=== PATIENT | female | born 1955 | race Caucasian/White ===

== ENCOUNTER 2023-04-16 10:28 | Outpatient (REF) | payer MEDICARE, SELFPAY | END 2023-04-16 10:29 | disposition home or self-care (01) | LOC: HO.SH 10:28 | PROVIDERS: PCP Internal Medicine; Visit Provider Internal Medicine | DX: Z01.118 Encounter for examination of ears and hearing with other abnormal findings (principal); H90.A31 Mixed conductive and sensorineural hearing loss, unilateral, right ear with restricted hearing on the contralateral side; H90.A22 Sensorineural hearing loss, unilateral, left ear, with restricted hearing on the contralateral side | CPT/HCPCS: 92557; 92567 ==

== ENCOUNTER 2024-01-21 09:00 | Outpatient (REF) | payer MEDICARE, SELFPAY ==
--- OUTSIDE RECORDS SUMMARY | 2024-01-26 06:00 | XMS_ITS ---
Author Name [facility] Organization Unknown History of Medication Use Medication Directions Dispensed Refills Start Date End Date [facility] pantoprazole 40 mg tablet,delayed release TAKE 1 TABLET BY MOUTH EVERY DAY 01/06/2024 9 active rosuvastatin 10 mg tablet TAKE 1 TABLET BY MOUTH EVERY DAY FOR 90 DAYS 01/06/2024 9 active amoxicillin 500 mg capsule TAKE 4 CAPSULES BY MOUTH 1 HOUR PRIOR TO APPOINTMENT 01/06/2024 9 active methylprednisolone 4 mg tablets in a dose pack TAKE 6 TABLETS ON DAY 1 DIRECTED ON PACKAGE AND DECREASE BY 1 TAB EACH DAY FOR A TOTAL OF 6 DAYS 01/06/2024 9 active ibuprofen 800 mg tablet TAKE 1 TABLET (800 MG TOTAL) BY MOUTH EVERY 8 HOURS NEEDED FOR PAIN FOR UP TO 30 DAYS. 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
== END 2024-01-21 09:01 | disposition home or self-care (01) ==
LOC: HO.SH 09:00
PROVIDERS: Visit Provider Internal Medicine
DX: Z01.118 Encounter for examination of ears and hearing with other abnormal findings (principal); H90.3 Sensorineural hearing loss, bilateral
CPT/HCPCS: 92557

== ENCOUNTER 2024-01-24 14:17 | Outpatient (REF) | payer SELFPAY ==
--- NOTE | 2024-01-24 15:32 | MHC.AU.MED ---
Medical Clearance for Hearing Instrumentation Date: 01/24/24 Patient Name: Lexy Guzmán Date of : 1955 Referring Provider: Dr. Virginia Avila We have seen your patient on 01/24/24 and have determined that they are a candidate for amplification (See accompanying report). Specifically, they would benefit from: Hearing aid use in both ears There is a statute that addresses Medical Evaluation Requirements prior to fitting a patient with a hearing aid. According to [place] statute 265 CMR:6.03(1), (a) General. Except as provided in 265 CMR 6.03(1)(b), a furnace unloader shall not sell a hearing aid unless the prospective user has presented to the furnace unloader a written statement signed by a licensed physician that states that the patient's hearing loss has been medically evaluated and the patient may be considered a candidate for a hearing aid. The medical evaluation must have taken place within the preceding six months. Please note: Due to the [place] Statute referenced above, we cannot accept a signature other than that of a licensed physician. DETAIL SUPERVISOR and PA signatures cannot be accepted. I am in agreement with the above recommendation. There is no medical contraindication for hearing instrumentation. Physician Signature Date Physician Name (Printed)
--- NOTE | 2024-01-25 08:49 | MHC.AU.HA1 ---
Hearing Aid Evaluation Date of Visit: 01/24/24 Historical Information: Description of Hearing: Right ear: moderately severe rising to normal mixed hearing loss Left ear: moderate rising to normal mixed hearing loss Summary: Lexy returned for HAE accompanied by her , who is a hearing aid user himself. Discussed makes and models, patient is concerned about cosmetics as well as natural quality of speech as she once tried hearing aids at [facility] and did not like how they sounded. Ultimately decided upon RITE style with domes, will add earmolds if necessary. Selected Oticon Intent 2 miniRITE R in chestnut. Will request medical clearance from managing ENT. Pt also notes she is still awaiting MRI results from PCP regarding recent onset of dizziness, plans to contact ENT after results come in. Hearing Aid Prescription: Based on the individual?s shared listening needs, communication environments, dexterity, desire for connectivity, and personal preferences, the following prescription for amplification has been made: Right ear: Make, Model, Color: Oticon Intent 2 miniRITE R, chestnut Battery Size: Rechargeable Digital Traffic Coordinator/Slim Tube: #2 85g Type of Earmold/Dome/CShell/SlimTip: 6mm dbl jacobsen Left ear: Left ear prescription to be same as Right Hearing Aid above: Make, Model, Color: Oticon Intent 2 miniRITE R, chestnut Battery Size: Rechargeable Digital Traffic Coordinator/Slim Tube: #2 85g Type of Earmold/Dome/CShell/SlimTip: 6mm dbl jacobsen Accessories/Assistive Technology Recommended: smart dope heater Plan of Care: Patient wishes to purchase hearing aids as prescribed Action Taken/Action Needed: Medical Clearance to be requested from PCP/ENT Hearing Instrument Fitting to be scheduled when materials arrive Primary Diagnosis: H90.6 Mixed Hearing Loss, Bilateral Secondary Diagnosis: H90.A22 SNHL, Unilateral, Left Ear, W/Restricted Contralateral Hearing Signature: Provider: Vianca Meyer, CCC-A
== END 2024-01-24 14:18 | disposition home or self-care (01) ==
LOC: HO.HAP 14:17
PROVIDERS: Visit Provider Internal Medicine
DX: Z46.1 Encounter for fitting and adjustment of hearing aid (principal); H90.6 Mixed conductive and sensorineural hearing loss, bilateral
CPT/HCPCS: 92590

== ENCOUNTER 2024-02-01 15:19 | Outpatient (REF) | payer SELFPAY ==
--- NOTE | 2024-02-02 08:55 | MHC.AU.HA2 ---
Hearing Instrument Fitting- Adult- Binaural Date of Visit: 02/02/24 Hearing Instruments Dispensed: Right Ear: Cristopher, Model, Color, Serial Number: Ayaka Intent 2 miniRITE Rjose luis [id number] Professor Of Communication And Writing Repair Warranty: 02/23/2027 Professor Of Communication And Writing Loss and Damage Warranty: 02/23/2027 [facility] Service Plan: Battery Size: Rechargeable Configuration Management Manager/Slim Tube: #1 85g Earmold/Dome/CShell/SlimTip: 6mm dbl jacobsen Type of Wax Guard: Minifit ProWax Left Ear: Cristopher, Model, Color, Serial Number: Oticon Intent 2 miniRITE Rjose luis [id number] Professor Of Communication And Writing Repair Warranty: 02/23/2027 Professor Of Communication And Writing Loss and Damage Warranty: 02/23/2027 [facility] Service Plan: Battery Size: Rechargeable Configuration Management Manager/Slim Tube: #1 85g Earmold/Dome/CShell/SlimTip: 6mm dbl jacobsen Type of Wax Guard: Minifit ProWax Accessories/Assistive Technology: Sirius SmartCharger S#[id number] Warranty 02/23/2027 [employer] TV3 [id number] Warranty 02/23/2025 Summary of Fitting: Lexy is here for hearing aid fitting. Discussed reverse slope and need for detailed patient feedback in programming process. Preprogrammed to have little to no high frequency gain, increased high frequency gain slightly above prescribed settings. Ran real ear measurements as reference, response looks as expected. Initial patient response positive; noted improvement in hearing ability. Decreased overall gain per pt request during adjustment period, also decreased right gain for better balance between ears. Reviewed basic use, cleaning, charging. Paired with phone per pt request for david use only, not streaming. Pt questioned if dizziness has increased with use of aids or if she is just getting used to hearing differently (states she is scheduled for vestibular PT, MRI was nonremarkable, plans to contact managing ENT again); instructed patient to discontinue use should dizziness worsen and call to schedule follow up visit. Pt agreed. Signed medical clearance as we did not receive from ENT yet. Reviewed and signed service agreement. Pt went to front to schedule 3 wk follow up and pay 50%, wishes to finance remaining balance. Recommendations: Recommendations: A hearing instrument follow-up is recommended in 2-3 weeks. Recommendations (Other): Diagnosis Code(s): Primary Diagnosis: H90.6 Mixed Hearing Loss, Bilateral Secondary Diagnosis: H90.A22 SNHL, Unilateral, Left Ear, W/Restricted Contralateral Hearing Signature: Provider: Vianca Meyer, CCC-A
== END 2024-02-01 15:20 | disposition home or self-care (01) ==
LOC: HO.HAP 15:19
PROVIDERS: Visit Provider Internal Medicine
DX: Z46.1 Encounter for fitting and adjustment of hearing aid (principal); H90.6 Mixed conductive and sensorineural hearing loss, bilateral
CPT/HCPCS: V5261; V5299

== ENCOUNTER 2024-02-07 08:29 | Outpatient (REF) | payer SELFPAY ==
--- NOTE | 2024-02-07 10:59 | MHC.AU.HA3 ---
Hearing Instrument Follow-Up- Binaural Date of Visit: 02/07/24 Right Ear: Cristopher, Model, Color, Serial Number: Oticon Intent 2 miniRITE R chestnut [id number] Drapery Hemmer Automatic Repair Warranty: 02/23/2027 [employer] Automatic Loss and Damage Warranty: 02/23/2027 [facility] Service Plan: Battery Size: Rechargeable Engineering Operations Leader/Slim Tube: #2 85g Earmold/Dome/CShell/SlimTip:6mm dbl jacobsen Type of Wax Guard: Minifit ProWax Dispensed By: [facility] Date of Fittin02/02/24 Left Ear: Cristopher, Model, Color, Serial Number: Oticon Intent 2 miniRITE R, chestnut [id number] Drapery Hemmer Automatic Repair Warranty: 02/23/2027 Draper[employer] Automatic Loss and Damage Warranty: 02/23/2027 [facility] Service Plan: Battery Size: Rechargeable Engineering Operations Leader/Slim Tube: #2 85g Earmold/Dome/CShell/SlimTip: 6mm dbl jaocbsen Type of Wax Guard: Minifit ProWax Dispensed By: [facility] Date of Fittin02/02/24 Follow-Up Summary: Lexy scheduled an additional follow up as she feels the hearing aids are providing amplification but she is not able to understand speech. She states certain sounds such as floor boards creaking are louder than expected, but nothing is uncomfortable. She has generally been decreasing overall volume 2 steps. Increased mid-highs, increased sudden sound reduction, decreased overall gain. Discussed challenges of low frequency loss, risk of losing clarity by increasing lows. Patient understands, says she will experiment with equalizer if she is struggling to help determine which direction to adjust at next follow up. Lexy also states she saw her ENT at [facility] regarding dizz[place], no significant findings or suggestions noted. She intends to start PT in early February. Recommendations: Recommendations: An additional follow-up was scheduled to monitor progress. Recommendations (Other): Diagnosis Code(s): Primary Diagnosis: H90.6 Mixed Hearing Loss, Bilateral Signature: Student/Clinical Fellow: Provider: Vianca Meyer, CCC-A
== END 2024-02-07 08:30 | disposition home or self-care (01) ==
LOC: HO.HAP 08:29
PROVIDERS: Visit Provider Internal Medicine
DX: Z13.89 Encounter for screening for other disorder (principal)

== ENCOUNTER 2024-02-25 12:54 | Outpatient (REF) | payer SELFPAY ==
--- NOTE | 2024-02-25 14:49 | MHC.AU.HA3 ---
Hearing Instrument Follow-Up- Binaural Date of Visit: 02/25/24 Right Ear: Cristopher, Model, Color, Serial Number: Oticon Intent 2 miniRITE R chestamanda [id number] Steam Oven Operator Repair Warranty: 02/23/2027 Steam Oven Operator Loss and Damage Warranty: 02/23/2027 [facility] Service Plan: Battery Size: Rechargeable Hospice Liaison/Slim Tube: #2 85g Earmold/Dome/CShell/SlimTip:6mm dbl jacobsen Type of Wax Guard: Minifit ProWax Dispensed By: [facility] Date of Fittin02/02/24 Left Ear: Cristopher, Model, Color, Serial Number: Oticon Intent 2 miniRITE R chestamanda [id number] Steam Oven Operator Repair Warranty: 02/23/2027 Steam Oven Operator Loss and Damage Warranty: 02/23/2027 [facility] Service Plan: Battery Size: Rechargeable Hospice Liaison/Slim Tube: #2 85g Earmold/Dome/CShell/SlimTip: 6mm dbl jacobsen Type of Wax Guard: Minifit ProWax Dispensed By: [facility] Date of Fittin02/02/24 Follow-Up Summary: Lexy continues to experience difficulty understanding speech. Prior to today's appointment she had emailed me saying she intended to return the hearing aids and try something else. Discussed adjusting current aids, trying Phonak loaners, or both at same time if she was interested in A-B comparison. Decided to continue with Oticon for now as we have only made one set of adjustments thus far and there is no specific objection that suggests Oticon itself is the problem, will consider Phonak demo if issues persist. Patient remains motivated to try hearing aids. Gave 3 programs: 1- flat, 2- low frequency emphasis, 3- high frequency emphasis. Lexy agrees to try all settings to determine what works best, if any. She is aware she can use VC within programs as well. Demonstrated in david. Follow up in 1-2 weeks recommended. Trial period extended. Notes she had a PT evaluation for dizziness and labyrinthitis is suspected, feels optimistic about improvement. Recommendations: Recommendations: An additional follow-up was scheduled to monitor progress. Diagnosis Code(s): Primary Diagnosis: H90.6 Mixed Hearing Loss, Bilateral Signature: Provider: Vianca Meyer, [facility]
== END 2024-02-25 12:55 | disposition home or self-care (01) ==
LOC: HO.HAP 12:54
PROVIDERS: Visit Provider Internal Medicine
DX: Z13.89 Encounter for screening for other disorder (principal)

== ENCOUNTER 2024-03-01 10:54 | Outpatient (REF) | payer SELFPAY ==
--- NOTE | 2024-03-01 12:03 | MHC.AU.HA3 ---
Hearing Instrument Follow-Up- Binaural Date of Visit: 03/01/24 Right Ear: Cristopher, Model, Color, Serial Number: Oticon Intent 2 miniRITE R chestnut [id number] Sql Database Developer Repair Warranty: 02/23/2027 Sql Database Developer Loss and Damage Warranty: 02/23/2027 [facility] Service Plan: Battery Size: Rechargeable Formula Room Worker/Slim Tube: #2 85g Earmold/Dome/CShell/SlimTip:6mm dbl jacobsen Type of Wax Guard: Minifit ProWax Dispensed By: [facility] Date of Fittin02/02/24 Left Ear: Cristopher, Model, Color, Serial Number: Oticon Intent 2 miniRITE R chestnut [id number] Sql Database Developer Repair Warranty: 02/23/2027 Sql Database Developer Loss and Damage Warranty: 02/23/2027 [facility] Service Plan: Battery Size: Rechargeable Formula Room Worker/Slim Tube: #2 85g Earmold/Dome/CShell/SlimTip: 6mm dbl jacobsen Type of Wax Guard: Minifit ProWax Dispensed By: [facility] Date of Fittin02/02/24 Follow-Up Summary: Lexy decided she'd like to demo Phonak aids. Discussed possibly introducing too many variables as at our last appt we gave 3 programs to experiment with in her Oticon aids, but she feels comfortable wearing one set to start then switching to the Phonak aids. States she liked P2 of the Oticon aids best (more low frequency gain) but still felt she heard louder but struggled to understand speech. Phonak aids have same program set up - P1 flat, P2 low emphasis, P3 high emphasis. Follow up as scheduled. Recommendations: Recommendations: Follow up as planned. Diagnosis Code(s): Primary Diagnosis: H90.6 Mixed Hearing Loss, Bilateral Signature: Provider: Vianca Meyer, [facility]
== END 2024-03-01 10:55 | disposition home or self-care (01) ==
LOC: HO.HAP 10:54
PROVIDERS: Visit Provider Internal Medicine
DX: Z13.89 Encounter for screening for other disorder (principal)

== ENCOUNTER 2024-03-10 12:52 | Outpatient (REF) | payer SELFPAY ==
--- OUTSIDE RECORDS SUMMARY | 2024-03-10 14:41 | XMS_ITS ---
Author Organization [facility], Address [address] [address] Care Team Providers Care Hosp[facility] Team Lead Name Role Phone SARA DUMAS Unavailable [phone] REASON FOR VISIT SCHED DIFF INJ (120 MIN) Encounters Encounter Location Date Provider Diagnosis [facility], [address] [address] 11/05/2023 SARA DUMAS Plan Of Treatment No Information Progress Notes * MARKTala GonzalezvivianDOB:1955 (68 yo F)Acc No.[id number]:11/05/2023 Patient:?Lexy GUZMÁN :1955???Age:68 Y???Sex:Female [address]:[place] [address] * true * Date:? Generated for Printi ng/Famartag/eTransmitting on:?03/10/2024 02:41 PM EST
--- OUTSIDE RECORDS SUMMARY | 2024-03-10 14:41 | XMS_ITS ---
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 Name Role Phone ANTHONY ARCOS Unavailable [phone] Allergies No Known Allergies REASON FOR VISIT Chronic left thigh pain, follow up Medications Medication SIG (Take, Route, Frequency, Duration) Notes Start Date End Date Status Motrin Active Tylenol Active Rosuvastatin Calcium Active Pantoprazole Sodium Active Citalopram & Diet Manage Prod Active Problems Problem Type SNOMED Code ICD Code Onset Dates Problem Status W/U Status Risk Notes Problem [id number] Meralgia paresthetica, left lower limb (G57.12) Active confirmed Vital Signs Weight 146 lbs 11/16/2023 Height 66 in 11/16/2023 BMI 23.56 kg/m2 11/16/2023 Weight-kg 66.22 kg 11/16/2023 Encounters Encounter Location Date Provider Diagnosis [place], [address] [address] 11/16/2023 ANTHONY ARCOS History of total lef t hip replacement Z96.642 ; Tendinitis of left hip flexor M76.892 ; Myofascial pain M79.18 and Meralgia paresthetica, left lower limb G57.12 Assessments Encounter Date Diagnosis (ICD Code) Assessment Notes Treatment Notes Treatment Clinical Notes Section Notes 11/16/2023 History of total left hip replacement (ICD-10 - Z96.642) Lexy has continued left anterior hip and thigh pain with hip flexion that started immediately after a total hip arthroplasty. We were unable to localize the source of her pain with a series of differential injections, but she has more focal pain over the anterior hip after additional physical therapy. We discussed repeating the differential injections, and she had no relief after an anesthetic injection into multiple spots along the iliopsoas tendon at the iliopectineal line/anterior to the hip joint/insertion. She also had no relief with anesthetic injections/trigge r points into the rectus femoris, sartorius and vastus lateralis muscle/proximal tendon. We also performed a lateral femoral cutaneous nerve block/hydrodissec tion without relief. We discussed that I am unable to find an extrinsic cause for her ongoing pain and maybe the pain is due to femoral stem pain. We discussed following up with Dr. Martin to rule out an intrinsic cause for the ongoing thigh pain. 11/16/2023 Tendinitis of left hip flexor (ICD-10 - M76.892) 11/16/2023 Myofascial pain (ICD-10 - M79.18) 11/16/2023 Meralgia paresthetica, left lower limb (ICD-10 - G57.12) 11/16/2023 Other Dragon dictation was used to assist with documentation of this note. While I did review this for errors, it is certainly possible that I may have overlooked some. If there is a confusing error, please do not hesitate to contact me for clarification. Thank you. . Greater than 45 minutes was spent with the patient, and more than 50 percent of the visit was spent [id number] counseling the patient or coordinating care. Time spent includes reviewing the medical record in preparation for the visit, performing a medically appropriate history and physical, medical decision making, counseling/educat ing patient and documenting this encounter. Time excludes any procedures that were performed during this encounter. Plan Of Treatment Treatment Notes Assessment Notes History of total left hip replacement James parker has continued left anterior hip and thigh pain with hip flexion that started immediately after a total hip arthroplasty. We were unable to localize the source of her pain with a series of differential injections, but she has more focal pain over the anterior hip after additional physical therapy. We discussed repeating the differential injections, and she had no relief after an anesthetic injection into multiple spots along the iliopsoas tendon at the iliopectineal line/anterior to the hip joint/insertion. She also had no relief with anesthetic injections/trigger points into the rectus femoris, sartorius and vastus lateralis muscle/proximal tendon. We also performed a lateral femoral cutaneous nerve block/hydrodissection without relief. We discussed that I am unable to find an extrinsic cause for her ongoing pain and maybe the pain is due to femoral stem pain. We discussed following up with Dr. Martin to rule out an intrinsic cause for the ongoing thigh pain. Other Dragon dictation was used to assist with documentation of this note. While I did review this for errors, it is certainly possible that I may have overlooked some. If there is a confusing error, please do not hesitate to contact me for clarification. Thank you. . Greater than 45 minutes was spent with the patient, and more than 50 percent of the visit was spent [id number] counseling the patient or coordinating care. Time spent includes reviewing the medical record in preparation for the visit, performing a medically appropriate history and physical, medical decision making, counseling/educating patient and documenting this encounter. Time excludes any procedures that were performed during this encounter. Next Appt Details Follow Up: prn, Reason: Progress Notes * Lexy GUZMÁNDOB:1955 (68 yo F)Acc No.[id number]:11/16/2023 Patient:?Lexy GUZMÁN Provider:?Anthony Arcos, :1955???Age:68 Y???Sex:Female D ate:11/16/2023 Address:[address] [place], [place] [id number] Subjective: * Chief Complaints: * ???Chronic left thigh pain, follow up * HPI: ???Hip:?Lexy reports for differential injections for her left hip pain. She continues to localize her pain to the anterior and lateral aspects. She continues to have pain with hip flexion above or below 90 degree(s) . She does report less diffuse myofascial pain after the course of physical therapy. * Medical History:? * Surgical History:?right hip replacement 08/05/2017left hip replacement 06/19/2021microvascular decompression of cranial nerve 7 2007microvascular decompression of cranial nerve 7 2008 * Hospitalization/Major Diagno stic Procedure:? * Family History:?No Family Hi story documented..? * Medications:?TakingMotrin Ty lenol Rosuvastatin Calcium Pantoprazole Sodium Citalopram & Diet Manage Prod Medication List reviewed and reconciled with the patientTaking Motrin Taking Tylenol Taking Rosuvastatin Calcium Taking Pantoprazole Sodium Taking Citalopram & Diet Manage Prod Medication List reviewed and reconciled with the patient * Allergies:?N.K.D.A.no[Allerg ies Verified] Objective: * Vitals:?Wt:146lbs, Ht: 66 in , BMI:23.56Index, Pain scale:51-10, Wt-k.22 kg, Body Surface Area: 1.75. * Examination: ???General Examination: ???General appearance: Appearance within normal limits with no signs of acute distress. Eyes normal conjunctiva. Sclera are clear. Extra ocular movements are intact. ENT: Normal appearance of ears and nose. No obvious hearing loss. Without tracheal deviation. Cardiovascular: Extremities are warm with normal peripheral perfusion and without edema or varicosities. Respiratory: Nonlabored with no audible wheezing. Skin: No visible rashes, lesions or ulcers. No evidence of induration on palpation.. Psychiatric: Appropriate mood and affect. Cooperative. ???Left hip: ???Hip Left Palpation: No tenderness over greater trochanter, ASIS, iliac crest Hip range of motion: Flexion normal. Hip internal rotation normal. Hip external rotation normal. Hip Motor Strength: Normal. Sensation: No loss of sensation to light palpation Special Tests (hip) Darell/Ritesh: negative Scour: negative FAIR: negative Log roll: negative Stinchfield: negative. Assessment: * Assessment: 1.?History of total left hip replacement - Z96.642 (Primary)???2.?Tendinitis of left hip flexor - M76.892???3.?Myofascial pain - M79.18???4.?Meralgia paresthetica, left lower limb - G57.12??? Plan: * Treatment: 2.?Others? Notes: Dragon dictation was used to assist with documentation of this note. While I did review this for errors, it is certainly possible that I may have overlooked some. If there is a confusing error, please do not hesitate to contact me for clarification. Thank you. . Greater than 45 minutes was spent with the patient, and more than 50 percent of the visit was spent [id number] counseling the patient or coordinating care. Time spent includes reviewing the medical record in preparation for the visit, performing a medically appropriate history and physical, medical decision making, counseling/educating patient and documenting this encounter. Time excludes any procedures that were performed during this encounter. ?? * Procedures:?Diagnostic Iliopsoas Tendon Sheath Injection Guidance: Ultrasound guidance Site: left iliopsoas tendon sheath Indication: hip pain Injectate: lidocaine 1% (2cc), ropivicaine 0.5% (2cc) Indications and alternatives to the procedure were explained to the patient. Risks and benefits were discussed, including the risk of bleeding, infection, nerve damage, tendon damage, skin discoloration, fat atrophy, increased pain/reaction to the injectate or continued pain. All questions were answered. Verbal informed consent was provided by the patient. Time out was performed, including verification of patient ID, procedure, site and side. The procedure site was marked and the patient was prepped aseptically. A diagnostic injection of lidocaine//ropivicaine solution was given under sterile technique using a 25g x 3.5 needle into the left iliopsoas tendon sheath using ultrasound guidance and an in-line approach. The patient tolerated the procedure without any immediate adverse reaction. A sterile bandage was applied. The images were permanently stored and achieved in the practice's PACS system. . . Therapeutic Trigger Point Injection Guidance: Ultrasound guidance Site: left rectus femoris, sartorius, vastus lateralis Indication: pain in the left hip/thigh Injectate: lidocaine 1% (4cc) Indications and alternatives to the procedure were explained to the patient. Risks and benefits were discussed, including the risk of bleeding, infection, nerve damage, tendon damage, skin discoloration, fat atrophy, increased pain/reaction to the injectate, continued pain or pneumothorax if injecting near the lungs. All questions were answered. Verbal informed consent was provided by the patient. Time out was performed, including verification of patient ID, procedure, site and side. The procedure site was marked and the patient was prepped aseptically. A therapeutic injection of diluted lidocaine solution was given under sterile technique using a 25g x 1.5 needle into the above trigger point using ultrasound guidance. The patient tolerated the procedure without any immediate adverse reaction. The patient was instructed to apply ice to the area for 20 minutes and avoid strenuous activities for 24-48 hours following the injection. Following that time, the patient can resume regular activities. The images were stored on an external memory stick. . . ?Lateral Femoral Cutaneous (Meralgia [place]) Peripheral Nerve Block Guidance: Ultrasound guidance Site: Left Lateral Femoral Cutaneous Nerve Indication: Meralgia [place] pain Injectate: lidocaine 1% (2cc), NS 0.9% (8cc) Indications and alternatives to the procedure were explained to the patient. Risks and benefits were discussed, including the risk of bleeding, infection, nerve damage, tendon damage, skin discoloration, fat atrophy, increased pain/reaction to the injectate or continued pain. All questions were answered. Verbal informed consent was provided by the patient. Time out was performed, including verification of patient ID, procedure, site and side. The procedure site was marked and the patient was prepped aseptically. A therapeutic injection of diluted lidocaine solution was given under sterile technique using a 25g x 1.5 needle into the lateral femoral cutaneous nerve sheath at the ASIS using ultrasound guidance. The patient tolerated the procedure without any immediate adverse reaction. The patient was instructed to apply ice to the area for 20 minutes and avoid strenuous activities for 24-48 hours following the injection. Following that time, the patient can resume regular activities. ? * Procedure Codes:? INJEC T TENDON ORIGIN/[id number] ECHO GUIDE FOR [id number] N BLOCK, OTHER [id number] INJECT TRIGGER POINTS, =/> 3 * Preventive Medicine:? ??Screenings:?Fall risk screening?Fall Risk Assessment:?No falls in the past year * Follow Up:?prn * Billing Information: * Visit Code:? 13058 Office Visit, Est Pt., Level 5. * Procedure Codes:? INJECT TENDON ORIGIN/INSERT. 85274 ECHO GUIDE FOR BIOPSY. 55313 N BLOCK, OTHER PERIPHERAL. 73622 INJECT TRIGGER POINTS, =/> 3. * Sign off status: Completed true * Provider:?Anthony Arcos DO Date:?11/15 Generated for Joycelyn geller/Prince/eTransmitting on:?03/10/2024 02:40 PM EST History and Physical Notes * HPI (History of Present Illness) Category Sub-Category Detail Notes Category Not es Hip Lexy reports for differential injections for her left hip pain. She continues to localize her pain to the anterior and lateral aspects. She continues to have pain with hip flexion above or below 90 degree(s) . She does report less diffuse myofascial pain after the course of physical therapy. Examination Category Sub-Category Detail Notes Category Not es Left hip Hip Left Palpation: No tenderness over greater trochanter, ASIS, iliac crest Hip range of motion: Flexion normal. Hip internal rotation normal. Hip external rotation normal. Hip Motor Strength: Normal. Sensation: No loss of sensation to light palpation Special Tests (hip) Darell/Ritesh: negative Scour: negative FAIR: negative Log roll: negative Stinchfield: negative General Examination General appearance: Appearance within normal limits with no signs of acute distress. Eyes normal conjunctiva. Sclera are clear. Extra ocular movements are intact. ENT: Normal appearance of ears and nose. No obvious hearing loss. Without tracheal deviation. Cardiovascular: Extremities are warm with normal peripheral perfusion and without edema or varicosities. Respiratory: Nonlabored with no audible wheezing. Skin: No visible rashes, lesions or ulcers. No evidence of induration on palpation.. Psychiatric: Appropriate mood and affect. Cooperative.
--- OUTSIDE RECORDS SUMMARY | 2024-03-10 14:41 | XMS_ITS | Patient Health Record ---
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 Name Role Phone SARA DUMAS Unavailable [phone] Allergies No Known Allergies Reason For Referral Reason Lt iliopsoas tendino leora, myofascial pain- stretch, strengthen, manual therapy Diagnosis 1 Myofascial pain (M79 .18) Diagnosis 2 Tendinitis of left h ip flexor (M76.892) Referral Organization [facility], Referring Provider First Name SARA Referring Provider Last Name ALESIA Referring Provider Speciality Physical M edicine and Rehabilitation Referred Provider Specialty Physical The rapist Referral Priority Routine Medications Medication SIG (Take, Route, Frequency, Duration) Notes Start Date End Date Status Motrin Active Tylenol Active Rosuvastatin Calcium Active Pantoprazole Sodium Active Citalopram & Diet Manage Prod Active Problems Problem Type SNOMED Code ICD Code Onset Dates Problem Status W/U Status Risk Notes Problem [id number] Meralgia paresthetica, left lower limb (G57.12) Active confirmed Problem [id number] Other chronic pain (G89.29) Active confirmed Problem 946626568642 History of total left hip replacement (Z96.642) Active confirmed Vital Signs Weight-kg 66.22 kg 11/16/2023 Height 66 in 11/16/2023 Weight 146 lbs 11/16/2023 BMI 23.56 kg/m2 11/16/2023 Encounters Encounter Location Date Provider Diagnosis [facility], [address] [facility] [place] [address] 09/10/2023 SARA DUMAS Pain in left hip M25.552 ; Other chronic pain G89.29 ; History of total left hip replacement Z96.642 ; Tendinitis of left hip flexor M76.892 ; Gluteal tendinitis, left hip M76.02 and Myofascial pain M79.18 [facility] [address] [place] [address] 11/04/2023 SARA DUMAS Tendinitis of left hip flexor M76.892 and Myofascial pain M79.18 [facility] [address] [place] [address] 11/16/2023 SARA GONZALEZAN History of total lef t hip replacement Z96.642 ; Tendinitis of left hip flexor M76.892 ; Myofascial pain M79.18 and Meralgia paresthetica, left lower limb G57.12 [facility] [address] [place] [address] 11/05/2023 SARA DUMAS [facility] [address] [place], [place] 09/21/2023 SRAA PIERCESMAN [facility] [address] [address] [place], [place] 09/22/2023 SARA PIERCESMAN [facility] [address] [address] [place], [place] 09/23/2023 SARA DUMAS [facility] [address] [address] [place], [place] 10/04/2023 SARA PIERCESMAN [facility] [address] [place] [address] [place], [place] 10/04/2023 SARA DUMAS Assessments Encounter Date Diagnosis (ICD Code) Assessment Notes Treatment Notes Treatment Clinical Notes Section Notes 09/10/2023 Other chronic pain (ICD-10 - G89.29) 09/10/2023 Pain in left hip (ICD-10 - M25.552) 11/04/2023 Myofascial pain (ICD-10 - M79.18) 11/04/2023 Tendinitis of left hip flexor (ICD-10 - M76.892) Lexy has continued left hip pain after her total hip arthroplasty. We are not successful in identifying the source of her pain with the previous round of differential injections. She is focused on the myofascial pain with her physical therapist, but has persistent pain. We did discuss associate diagnoses including potential referred pain. Nohemi completed 2 to 3 months of additional physical therapy I would like to repeat the differential injections to ensure that the pain is not being referred from the tendons. She will follow-up in a procedure slot. 11/16/2023 History of total left hip replacement [...] also performed a lateral femoral cutaneous nerve block/hydrodissect ion without relief. We discussed that I am unable to find an extrinsic cause for her ongoing pain and maybe the pain is due to femoral stem pain. We discussed following up with Dr. Martin to rule out an intrinsic cause for the ongoing thigh pain. 11/16/2023 Tendinitis of left hip flexor (ICD-10 - M76.892) 11/16/2023 Myofascial pain (ICD-10 - M79.18) 09/10/2023 History of total left hip replacement (ICD-10 - Z96.642) Lexy has persistent left anterior hip pain after a total hip arthroplasty. She primarily has pain with hip flexion, and I'm able to reproduce her hip pain with resisted hip flexion on exam today. Diagnostic ultrasound the show subtle abnormality of the iliopsoas tendon but no clear snapping or impingement against the hip joint replacement with dynamic testing. An anesthetic injection into the iliopsoas tendon at the hip joint did temporarily relieve the anterior lateral hip pain even with provocative testing. We then performed a series of trigger point injections which increase the thigh pain. She did have a focal area tenderness over lateral hip and abnormality of the gluteal tendon on a diagnostic ultrasound, but the lateral hip pain did not resolve with a anesthetic injection into the tendon. I suspect that some of the anterior lateral pain is related to the iliopsoas tendon and we discussed orthobiologics injections. The more diffuse pain, I think is compensatory and myofascial and we discussed continued therapy. She was provided with my email information to share with her therapist and to discuss the results of today's injections. 09/10/2023 Tendinitis of left hip flexor (ICD-10 - M76.892) 11/16/2023 Meralgia paresthetica, left lower limb (ICD-10 - G57.12) 09/10/2023 Gluteal tendinitis, left hip (ICD-10 - M76.02) 09/10/2023 Myofascial pain (ICD-10 - M79.18) 09/10/2023 Other Dragon dictation was used to assist with documentation of this note. While I did review this for errors, it is certainly possible that I may have overlooked some. If there is a confusing error, please do not hesitate to contact me for clarification. Thank you. . Greater than 60 minutes was spent with the patient, and more than 50 percent of the visit was spent [id number] counseling the patient or coordinating care. Time spent includes reviewing the medical record in preparation for the visit, performing a medically appropriate history and physical, medical decision making, counseling/educati ng patient and documenting this encounter. Time excludes any procedures that were performed during this encounter. 11/04/2023 Other Dragon dictation was used to assist with documentation of this note. While I did review this for errors, it is certainly possible that I may have overlooked some. If there is a confusing error, please do not hesitate to contact me for clarification. Thank you. This office visit was being conducted via telemedicine. The patient has a pre-existing patient relationship. The telemedicine interaction included all the recognized components of a patient physician encounter as if the encounter had occurred [id number] with the same standards of appropriate practice as those in traditional settings. Greater than 50% of the time spent was devoted to counseling and coordinating care including review of relevant medical history and medical records, pertinent lab data and studies before initiating the call. These records were also reviewed with the patient during the call, including discussing diagnostic evaluation and work up, planned therapeutic interventions and future disposition of care. The patient verbally consented to this visit conducted via telemedicine and reasonable care was taken to ensure security and privacy of the interactive virtual clinical encounter, which was conducted virtually using HIPAA compliant video conferencing technology. 11/16/2023 Other Dragon dictation was used to [...] 50 percent of the visit was spent [id number] counseling the patient or coordinating care. Time spent includes reviewing the medical record in preparation for the visit, performing a medically appropriate history and physical, medical decision making, counseling/educati ng patient and documenting this encounter. Time excludes any procedures that were performed during this encounter. Plan Of Treatment No Information Insurance Providers Payer Name Payer Address Payer Phone Subscriber Number Group Number Insured Name Patient Relationship to Insured Coverage Start Date Coverage End Date Medicare of [place] [address] [facility] [place] [id number] [facility] - patient is the insured BS MED[employer] (Supplement) [address] [place], [place] [id number] [phone] [id number] Lexy Guzmán Self - patient is the insured Medical (General) History Medical History History ICD Code OA Surgical History Surgery Date(Month/Year) right hip replacement 08/05/2017 left hip replacement 06/19/2021 microvascular decompression of cranial n erve 7 2007 microvascular decompression of cranial n erve 7 2008
--- OUTSIDE RECORDS SUMMARY | 2024-03-10 14:41 | XMS_ITS | Clinical Summary ---
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 Name Role Phone Unavailable Primary Care Provider Unavailabl e Social History Tobacco Use Types Packs/Day Years Used Date Smoking Tobacco: Never Assessed Sex and Gender Information Value Date Recorded Sex Assigned at Not on file Gender Identity Not on file Sexual Orientation Not on file Plan of Treatment Health Maintenance Due Date Last Done Comments Hepatitis C Virus Screening 1955 DTaP/Tdap/Td Vaccines (1 - Tdap) 1972 Pneumococcal Vaccines 50+ (1 of 1 - PCV) 04/19/2003 Zoster (Shingles) Vaccine (1 of 2) 04/19/2003 COVID-19 Vaccine (2023-2 5 season) 2023 RSV Vaccine 60 years and old er and Patients (1 - 1-dose 75+ series) 2028 Hepatitis B Vaccines Aged Out No long er eligible based on patient's age to complete this topic
--- OUTSIDE RECORDS SUMMARY | 2024-03-10 14:41 | XMS_ITS | Clinical Summary ---
Author Organization [facility] Address [address] [place] [address] Care Team Providers Care Pet Care Worker Name Role Phone Robert William MD Primary Care Provider [phone] Allergies No known active allergies Medications Medication Sig Dispensed Refills Start Date End Date Status pantoprazole (PROTONIX) 40 MG injection Inject 40 mg into the vein daily. 0 Active citalopram (CELEXA) 20 MG tablet Take 20 mg by mouth daily. 0 Active butalbital-acetaminop hen-caffeine 50-325-40 MG per tablet Take 1 tablet by mouth 4 (four) times a day as needed. for headache 0 05/29/2020 Active rosuvastatin (CRESTOR) tablet 10 mg Take 10 mg by mouth daily. 0 Active fluticasone (FLONASE) 50 MCG/ACT nasal spray spray/apply 1 spray in each nostril daily. 0 Active Active Problems No known active problems Social History Tobacco Use Types Packs/Day Years Used Date Smoking Tobacco: Never Smokeless Tobacco: Never Alcohol Use Standard Drinks/Week Comments Yes 0 (1 standard drink = 0.6 oz pur e alcohol) rarely Sex and Gender Information Value Date Recorded Sex Assigned at Female 08/10/2020 10:51 AM EDT Gender Identity Not on file Sexual Orientation Not on file Job Start Date Occupation Industry Not on file Not on file Not on file Last Filed Vital Signs Vital Sign Reading Time Taken Comments Blood Pressure 145/87 12/27/2022 11:20 AM EST Pulse 61 12/27/2022 11:20 AM EST Temperature 36.7 ??C (98.1 ??F) 12/27/2022 11:[address] Respiratory Rate 18 12/27/2022 11:20 AM EST Oxygen Saturation 96% 12/27/2022 11:20 AM EST Inhaled Oxygen Concentration - - Weight 68 kg (150 lb) 12/27/2022 11:20 AM EST Height 167.6 cm (5' 6 ) 12/27/2022 11:20 AM EST Body Mass Index 24.21 12/27/2022 11:20 AM EST Plan of Treatment Health Maintenance Due Date Last Done Comments Hepatitis C Screening 1955 Depression Screening 1965 Preventative Health Evaluation 04/19/1971 DTap / Tdap / Td (1 - Tdap) 1972 Colon Cancer Screening (Colonoscopy) 1998 Breast Cancer Screening (Mammogram) 04/19/2003 Shingrix-Zoster Vaccine (1 o f 2) 04/19/2003 Fall Risk Assessment 2018 Osteoporosis Screening (DEXA Scan) 2018 COVID-19 Vaccine (2023-2 5 season) 2023 11/11/2020, 04/03/2020 Influenza Vaccine (#1) 2023 0, 12/26/2015 RSV Adult > 60+ Yrs or (1 - 1-dose 75+ series) 2028 Pneumococcal Vaccine Completed 05/16/2021, 03/03/2019 Hepatitis B Vaccines Aged Out No long er eligible based on patient's age to complete this topic RSV Ped < 20 months Aged Out No longe r eligible based on patient's age to complete this topic Care Teams Pet Care Worker Relationship Specialty Start Date End Date Robert William MD [address] [place] [address] PCP - General Converting Technician 10/05/13
--- OUTSIDE RECORDS SUMMARY | 2024-03-10 14:41 | XMS_ITS ---
Author Organization [facility], Address [address] [address] Care Team Providers Care Replenishment Buyer Name Role Phone ANTHONY ARCOS Unavailable [phone] REASON FOR VISIT TELEMED VID FU LT THIGH Encounters Encounter Location Date Provider Diagnosis [facility], [address] [address] 02/17/2024 ANTHONY ARCOS Plan Of Treatment No Information Progress Notes * Lexy GUZMÁNDOB:1955 (68 yo F)Acc No.[id number]:02/17/2024 Patient:?Lexy GUZMÁN Provider:?Anthony Arcos DO :1955???Age:68 Y???Sex:Female D ate:02/17/2024 Address:[address] [place], [place] [id number] Subjective: * Chief Complaints: * ???1. TELEMED VID FU LT THIG H. * Medical History:? Objective: * Vitals:? Assessment: Plan: * Treatment: * Billing Information: * Visit Code:? * Procedure Codes:? * Electronic signature of MARY ARCOS DO on 03/10/2024 at 02:40 PM EST Sign off status: Pending * Provider:Gaye Arcos DO Date:?02/16 Generated for Printi ng/Faxing/eTransmitting on:?03/10/2024 02:40 PM EST
--- OUTSIDE RECORDS SUMMARY | 2024-03-10 14:41 | XMS_ITS | Data Portability ---
Author Organization [facility] [address] Address [address] [place] [address] Care Team Providers Care Analog Ic Design Engineer Name Role Phone TEE MONTOYA Primary Care Provider [phone] Assessment No assessment recorded. Plan of Treatment Reminders Order Date Submit Date Provider Last Modified By Organization Details Last Modified Time Details Appointments None recorded. Lab None recorded. Referral None recorded. Procedures None recorded. Surgeries None recorded. Imaging None recorded. Medication Orders prednisone 20 mg tablet 2021 [facility]/Pharmacy #[id number], [phone] [place], [address], 19:31:56 albuterol sulfate HFA 90 mcg/actuati on aerosol inhaler [id number] [phone] [place], [address], 19:31:56 benzonatate 200 mg capsule 2021 [id number] [phone] [place], [address], 19:31:55 Patient TargetsNo targets recorded. Patient Instructions Encounter Date Encounter Id Patient Instructions Last Modified By Organization Details Last Modified Time 01/25/2022 [id number] wheezing or bronchoconstrictio n: care instructions Not available 01/25/2022 19:31:53 Acute bronchitis is a condition of the lower airway with self-limited inflammation that will eventually resolve on it's own. It is usually caused by a viral infection in 95% of cases, therefore an antibiotic is not needed. Unfortunately, these symptoms can persist for approximately 3 weeks, with occasional persistence for 4-6 weeks. Treatment for bronchitis is aimed at focusing on helping to relieve your symptoms and you can implement the following remedies below, as long as they do not interfere with your current medications, past medical history, or go against advice you have received from your primary care provider and/or a specialist. If you are concerned you can always ask a pharmacist your primary care provider prior to their use. Not available 01/25/2022 19:31:45 Patient instruct ed on worsening signs and symptoms that would require further evaluation by ED or PCP such as fever of 101.0 or greater, congestion accompanied with coughing, vomiting, diarrhea, abdominal pain, decreased oral intake, lethargy, or other new symptom(s) experienced not discussed during this visit. Use humidifier and ensure good hydration. If you experience new concerning symptoms, shortness of breath, respiratory distress, or chest pain go to the ER. Use the medications prescribed. May use Decongestants if tolerated and no history of elevated blood pressure or Diabetes. Use saline nasal saline and Flonase daily for1 week. You may use tylenol for pain/fever. Do not take prednisone with Ibuprofen. Get some extra rest. When should you call for help? Call anytime you think you may need emergency care. For example, call if: You have severe trouble breathing. Call your doctor now or seek immediate medical care if: You have new or worse trouble breathing. You cough up dark brown or bloody mucus (sputum). You have a new or higher fever. You have a new rash. Watch closely for changes in your health, and be sure to contact your doctor if: You cough more deeply or more often, especially if you notice more mucus or a change in the color of your mucus. You are not getting better as expected. Not available 01/25/2022 19:31:52 Reason for Referral None Reported. Problems Name Problem SNOMED Code Status Onset Date Resolution Date Notes Provider Name and Address Organization Details Recorded Time Hyperlipidemia 39221332 Active 2021 ALEXANDRA Mathis - [facility] 2 18:52:33 Anxiety 62614840 Active 2021 TAPAN DRINKWINE null, PA - [facility] 18:53:17 Migraine 02869058 Active 2021 TAPAN DRINKWINE null, PA - [facility] 18:53:26 Problem Notes None recorded. Procedures Surgical History Date Name Laterality Status Provider Name and Address Organization Details Recorded Time total replacement of hip completed TAPAN DRINKWINE PA - [facility] 01/25/2022 18:52:47 decompression of brain completed TAPAN DRINKWINE PA - [facility] 01/25/2022 18:54:21 section completed TAPAN DRINKWINE PA - [facility] 01/25/2022 18:54:49 Imaging Results None recorded. Procedure Notes None recorded. Medical Equipment None Reported. Allergies No known drug allergies Medications Name Sig Start Date Stop Date Status Note LastModified by Organization Details LastModified Time benzonatate 200 mg capsule Take 1 capsule 3 times a day by oral route for 7 days. 2021 active Not Available Not Available Not Avai lable prednisone 20 mg tablet Take 2 tablets every day by oral route for 5 days. 2021 active Not Available Not Available Not Avai lable albuterol sulfate HFA 90 mcg/actuatio n aerosol inhaler Inhale 2 puffs every 4 hours by inhalation route for 7 days. 2021 active Not Available Not Available Not Avai lable rosuvastatin 10 mg tablet Take 1 tablet every day by oral route. active Not Available Not Available No t Available citalopram active Not Available Not Av ailable Not Available Fioricet active Not Available Not Avai lable Not Available Vitals Date Recorded Body height Provider Name an d Address Organization Details Last Updated DateTime 01/25/2022 167.64 cm TAPAN DRINKWINE PA - [facility] 01/25/2022 18:56:03 Date Recorded Body mass index (BMI) Body weight Provider Name and Address Organization Details Last Updated DateTime 01/25/2022 23.4 kg/m2 87430.89 g TAPAN DRINKWINE PA - [facility] 01/25/2022 18:56:07 Date Recorded Pain severity - 0-10 verbal numeric rating [Score] - Reported Provider Name and Address Organization Details Last Updated DateTime 01/25/2022 0 TAPAN MARTE PA - [facility] 01/25/2022 18:56:52 Date Recorded Oxygen saturation Oxygen saturation in Arterial blood by Pulse oximetry Provider Name and Address Organization Details Last Updated DateTime 01/25/2022 98 % 98 % TAPAN MELVINE PA - [facility] 01/25/2022 18:56:56 Date Recorded Heart rate Provider Name an d Address Organization Details Last Updated DateTime 01/25/2022 62 /min TAPAN MELVINE PA - [facility] 01/25/2022 18:57:04 Date Recorded Respiratory rate Provider Name a nd Address Organization Details Last Updated DateTime 01/25/2022 16 /min TAPAN DRINKSTEVENE PA - [facility] 01/25/2022 18:57:05 Date Recorded Body temperature Provider Name a nd Address Organization Details Last Updated DateTime 01/25/2022 97.6 [degF] TAPAN MELVINE PA - [facility] 01/25/2022 18:57:08 Date Recorded Systolic blood pressure Diastolic blood pressure Provider Name and Address Organization Details Last Updated DateTime 01/25/2022 112 mm[Hg] 76 mm[Hg] TAPANLin MELVINE PA - [facility] 01/25/2022 18:58:00 Social History Question Answer Notes LastModified by Organizat ion Details LastModified Time Tobacco Smoking Status Never Smoker TAPAN MARTE yahir PA - [facility] 01/25/2022 18:55:40 Do You Use Any Illicit Or Recreational Drugs? No Information not available 01/25/2022 Have You Recently Traveled Abroad? No Information not available 01/25/2022 Do You Or Have You Ever Used Any Other Forms Of Tobacco Or Nicotine? No Information not available 01/25/2022 Sex: Unknown Functional Status None recorded. Mental Status None recorded. Family History Relationship Description Onset Age of this Age Resolved Age Notes LastModified by Organization Details LastModified Time Father No current problems or disability [email or web address] Not available 01/15 18:55:03 Mother No current problems or disability [email or web address] Not available 01/15 18:55:03 Mother Glaucoma [email or web address] Not availab le 01/25/2022 18:55:18 Medical History No medical history recorded. Gynecological HistoryNo gynecological history recorded. Obstetrics History GPAL:G 0 P 0 0 0 0 Immunizations Vaccine Type Date Status Note Provider Nam e and Address Organization Details Recorded Time zoster recombinant 0 completed TAPAN DRINKWINE null, PA - [facility] 01/25/2022 18:55:47 zoster recombinant 9 completed TAPAN DRINKWINE null, PA - [facility] 01/25/2022 18:55:47 COVID-19, mRNA, LNP-S, PF, 30 mcg/0.3 mL dose 1 completed TAPAN DRINKWINE null, PA - [facility] 01/25/2022 18:55:47 pneumococcal polysaccharide PPV23 2 completed TAPAN DRINKWINE null, PA - [facility] 01/25/2022 18:55:47 Influenza, adjuvanted, quadrivalent, PF 1 completed TAPAN DRINKWINE null, PA - [facility] 01/25/2022 18:55:47 Influenza, high-dose, quadrivalent, PF 2 completed TAPAN DRINKWINE null, PA - [facility] 01/25/2022 18:55:47 COVID-19, mRNA, LNP-S, bivalent, PF, 30 mcg/0.3 mL dose 2 completed TAPAN DRINKWINE null, PA - [facility] 01/25/2022 18:55:47 Influenza, recombinant, quadrivalent, PF 9 completed TAPAN DRINKWINE null, PA - [facility] 01/25/2022 18:55:47 COVID-19, mRNA, LNP-S, PF, 30 mcg/0.3 mL dose 1 completed TAPAN DRINKWINE null, PA - [facility] 01/25/2022 18:55:47 COVID-19, mRNA, LNP-S, PF, 30 mcg/0.3 mL dose 1 completed TAPAN DRINKWINE null, PA - [facility] 01/25/2022 18:55:47 Past Encounters Encounter ID Performer Location Encounter Start Date Encounter Closed Date Diagnosis/Indication Diagnosis SNOMED-CT Code Diagnosis ICD10 Code Diagnosis Note [id number] [address] [place], [place] [address] 03/10/2021 08:15:41 03/10/2021 09:03:05 [id number] [address] [facility] [place] [address] 01/29/2021 13:51:01 01/29/2021 15:19:03 [id number] [place]arg[place] [address] [facility] [place] [address] 01/25/2022 17:43:22 01/25/2022 19:33:04 Acute bronchitis 22357438 J20.9 Health Concerns Section Related Observation LastModified by Organization Detai ls LastModified Time None Recorded Concern Status LastModified by Organization Details LastModified Time None Recorded Advance Directives Directive None Recorded Payers Encounter Date Sequence Insurance Name Policy Number Policy Leonardo Covered Member ID Leonardo Member ID Guarantor Name 01/29/2021 1 MEDICARE B-AL: [facility] Lexy O Miehm [id number] Lexy Miehm 03/10/2021 1 MEDICARE B-AL: [facility] Lexy O Miehm [id number] 2 Lexy Miehm 01/25/2022 1 MEDICARE B-AL: [facility] Lexy O Miehm [id number] 2 Lexy Miehm Notes Date Note Type Note Provider Name and Address Organization Details Recorded Time 01/25/2022 text/html AsthmaReported bypatient.Notes:gerald ested cough x 1 week. nasal congestion and post nasal drip. feel like she is wheezing at times. worried about developing pneumonia. Vincent Vargas NP [address] [place], [address], [place] - [facility] 01/25/2022 19:32:18 OBGyn Episode No OBEpisode recorded.
--- OUTSIDE RECORDS SUMMARY | 2024-03-10 14:41 | XMS_ITS | Clinical Summary ---
Author Organization [facility] it Address [address] [place] [address] Care Team Providers Care Form Carpenter Name Role Phone Robert Elkins MD Primary Care Provider [phone] Surgical History Surgery Date Site/Laterality Comments TOTAL HIP ARTHROPLASTY Right PROCEDURE:TOTAL HIP ARTHROPLASTY CEREBRAL MICROVASCULAR DECOMPRESSION PROCEDURE:CEREBRAL MICROVASCULAR DECOMPRESSION;COMMENT: SECTION PROCEDURE: SECTION;COMMENT: Medical History Medical History Date Comments Migraine DX:Migraine High cholesterol DX:High cholest connie Anxiety DX:Anxiety Social History Tobacco Use Types Packs/Day Years Used Date Smoking Tobacco: Never Smokeless Tobacco: Never Alcohol Use Standard Drinks/Week Comments Yes 0 (1 standard drink = 0.6 oz pur e alcohol) Sex and Gender Information Value Date Recorded Sex Assigned at Not on file Gender Identity Not on file Sexual Orientation Not on file Obstetrics History Plan of Treatment Health Maintenance Due Date Last Done Comments Breast Cancer Screening 1955 DTaP,Tdap,and Td Vaccines (1 - Tdap) 1972 Zoster Vaccines (1 of 2) 04/19/2003 Pneumococcal Vaccine: 65+ Ye ars (1 of 1 - PCV) 2018 Colorectal Cancer Screening: Colonoscopy 01/18/2022 Depression Screening 01/18/2022 Falls Risk Assessment 01/18/2022 Hepatitis C Screening 01/18/2022 Osteoporosis Screening (Bone Density Screening) 01/18/2022 Social Influencers of Health Screening 01/18/2022 COVID-19 Vaccine ( - 2023-2 5 season) 2023 Influenza Vaccine (#1) 2023 RSV Immunization Patients 60 + Years Old (1 - 1-dose 75+ series) 2028 HIB Vaccines Aged Out No longer eligi ble based on patient's age to complete this topic HPV Vaccines Aged Out No longer eligi ble based on patient's age to complete this topic Hepatitis A Vaccines Aged Out No long er eligible based on patient's age to complete this topic Hepatitis B Vaccines Aged Out No long er eligible based on patient's age to complete this topic IPV Vaccines Aged Out No longer eligi ble based on patient's age to complete this topic MMR Vaccines Aged Out No longer eligi ble based on patient's age to complete this topic Meningococcal ACWY Vaccine Aged Out N o longer eligible based on patient's age to complete this topic RSV Immunization Patients Un magaly 20 months Aged Out No longer eligible b ased on patient's age to complete this topic Varicella Vaccines Aged Out No longer eligible based on patient's age to complete this topic Care Teams Form Carpenter Relationship Specialty Start Date End Date Robert Elkins MD PCP - General Beverage Host 10/05/13
== END 2024-03-10 12:53 | disposition home or self-care (01) ==
LOC: HO.HAP 12:52
PROVIDERS: Visit Provider Internal Medicine
DX: Z13.89 Encounter for screening for other disorder (principal)

== ENCOUNTER 2024-03-30 14:30 | Outpatient (REF) | payer SELFPAY ==
--- OUTSIDE RECORDS SUMMARY | 2024-03-30 14:36 | XMS_ITS ---
Author Organization [facility] [employer] [facility], Address [address] [address] Care Team Providers Care Supervisor Ship Maintenance Services Name Role Phone ANTHONY ARCOS Unavailable [phone] Allergies No Known Allergies REASON FOR VISIT Chronic left thigh pain, follow up Medications Medication SIG (Take, Route, Frequency, Duration) Notes Start Date End Date Status Motrin Active Tylenol Active Rosuvastatin Calcium Active Pantoprazole Sodium Active Citalopram & Diet Manage Prod Active Problems Problem Type SNOMED Code ICD Code Onset Dates Problem Status W/U Status Risk Notes Problem [id number] Meralgia paresthetica, left lower limb (G57.12) Active confirmed Vital Signs Weight 146 lbs 11/16/2023 Height 66 in 11/16/2023 BMI 23.56 kg/m2 11/16/2023 Weight-kg 66.22 kg 11/16/2023 Encounters Encounter Location Date Provider Diagnosis [facility], [address] [address] 11/16/2023 ANTHONY ARCOS History of total lef [...] 50 percent of the visit was spent [id number] counseling the patient or coordinating care. Time [...] 50 percent of the visit was spent [id number] counseling the patient or coordinating care. Time spent includes reviewing the medical record in preparation for the visit, performing a medically appropriate history and physical, medical decision making, counseling/educating patient and documenting this encounter. Time excludes any procedures that were performed during this encounter. Next Appt Details Follow Up: prn, Reason: Progress Notes * Lexy GUZMÁNDOB:1955 (68 yo F)Acc No.[id number]:11/16/2023 Patient:?Lexy GUZMÁN Provider:?Anthony Arcos, :1955???Age:68 Y???Sex:Female D ate:11/16/2023 Address:[address] [place], [place] [id number] Subjective: * Chief Complaints: * ???Chronic left [...] 50 percent of the visit was spent [id number] counseling the patient or coordinating care. Time [...] ? * Procedure Codes:? INJEC T TENDON ORIGIN/[id number] ECHO GUIDE FOR [id number] N BLOCK, OTHER [id number] INJECT TRIGGER POINTS, =/> 3 * Preventive Medicine:? ??Screenings:?Fall risk screening?Fall Risk Assessment:?No falls in the past year * Follow Up:?prn * Billing Information: * Visit Code:? 56303 Office Visit, Est Pt., Level 5. * Procedure Codes:? INJECT TENDON ORIGIN/INSERT. 03797 ECHO GUIDE FOR BIOPSY. 25466 N BLOCK, OTHER PERIPHERAL. 90042 INJECT TRIGGER POINTS, =/> 3. * Sign off status: Completed true * Provider:?Anthony Arcos DO Date:?11/15 Generated for Joycelyn geller/Prince/eTransmitting on:?03/30/2024 02:36 PM EST History and Physical Notes * [...]
--- OUTSIDE RECORDS SUMMARY | 2024-03-30 14:36 | XMS_ITS | Data Portability ---
Author Organization [place] [facility] Olga Campos [place] Address [address] [place] [address] Care Team Providers Care Film Reader Name Role Phone MOSLEY TEE Primary Care Provider Assessment Encounter Date Assessment Date Assessment LastModified by Organization Details LastModified Time 01/04/2024 01/04/2024 HPI : ? Patient is here for left hip pain. She has a history of a left total hip replacement in June [address] Ryley Martin. She states that she had thigh pain with hip flexion since then. The pretty persistent. She has been doing treatments including physical therapy. She did have what sounds like an IT band injection, but that is unclear. She had a CT scan which was unremarkable. We got an ESR and CRP before she came here which ruled out an infection of the hip. Physical Exam : Patient is well nourished, well-developed, in no acute distress, with appropriate mood and affect. The patient is oriented to time, place, and person. Respirations are even and unlabored. There is no inguinal adenopathy. Examination of the contralateral hip shows normal range of motion, strength, no tenderness, and intact skin. The operative limb is well-perfused, with well healed skin incision. The patient demonstrates good hip motion, stability, and strength. There is pain with resisted hip flexion. There is no pain with ROM Pedal pulses are palpable. Assessment/Plan : Patient has pain with hip flexion about 2 years from left total hip replacement with Dr. Ryley Martin. Exam, imaging, and history do not show any signs of implant related issues including loosening, malposition, instability, periprosthetic fracture, or infection. This is possibly hip flexor tendinitis. I would like to get an MRI of the left hip given its persistent and its failure to respond to nonoperative management. 22 minutes reviewing previous charting. 10 minutes spent obtaining history. 5-minute spent on physical exam. 7 minutes spent reviewing treatment plan. Not available 01/04/2024 15:42:03 02/29/2024 02/29/2024 HPI : Patient is here for follow-up for her left hip pain. At last visit I ordered an MRI of the left hip. There was concern for flexor tendinitis. There was no significant findings of flexor tendinitis on MRI, but there did show a acetabular cyst along the superior acetabulum. This was of unclear etiology. Physical Exam : Patient is well nourished, well-developed, in no acute distress, with appropriate mood and affect. The patient is oriented to time, place, and person. Respirations are even and unlabored. There is no inguinal adenopathy. Examination of the contralateral hip shows normal range of motion, strength, no tenderness, and intact skin. The operative limb is well-perfused, with well healed skin incision. The patient demonstrates good hip motion, stability, and strength. There is pain with resisted hip flexion. There is no pain with ROM Pedal pulses are palpable. Assessment/Plan : Patient has continued left hip pain following left total hip replacement. While there may be a component of left hip flexor tendinitis that seen on MRI, I do not think the extent of it requires further intervention. The MRI did show a acetabular cyst of unclear etiology. We do not have preoperative comparative x-rays given that her total hip replacement was performed 12 years ago. Given her persistent symptoms, I think it is reasonable to get a CT to assess for a chondroid matrix as recommended by the radiologist. I am putting in an order for pelvic CT with and without contrast. We will call her with the results of this and let her know if further follow-up is needed. I think more than likely this is an old degenerative cyst. If there is no further issue with that cyst, she recognizes that there is no issue with the hip replacement that would require further intervention and is satisfied with that explanation. Not available 02/29/2024 16:33:19 Plan of Treatment Reminders Order Date Submit Date Provider Last Modified By Organization Details Last Modified Time Details Appointments None recorded. Lab None recorded. Referral None recorded. Procedures None recorded. Surgeries None recorded. Imaging CT, pelvis, w/wo contrast - evaluation of left acetabular cyst following left total hip, (cyst seen on MRI 02/23/24) 2024 025 REBEKAH Not available 5 17:20:26 MRI, hip, w/o contrast - left total hip replacement . concern for flexor tendinitis. MARS protocol 2023 024 REBEKAH Not available 5 01:30:40 XR, hip, unilateral, 2 or 3 view 2023 024 [facility], [address], [place], [address], 4 16:16:43 Medication Orders None recorded. Patient TargetsNo targets recorded. Patient Instructions Encounter Date Encounter Id Patient Instructions Last Modified By Organization Details Last Modified Time 01/04/2024 [id number] AP pelvis, AP an d lateral radiographs of the left hip taken today demonstrates a left total hip replacement with components in appropriate position without any signs of hardware related complication. Not available 01/04/2024 15:41:27 Reason for Referral None Reported. Results Created Date Observation Date Name Description Value Unit Range Abnormal Flag Note LastModifiedBy Organization Detail LastModifiedTime 12/09/1912/10/2023 SED RATE BY MODIF IED PEEWEE RGREN sed rate by modified trace 2 mm/h < or = 30 normal Not Available [email or web address] [address], [place], [address], 12/10/2023 16:54:56 12/09/1912/10/2023 C-FIFI CTIVE PROTE IN C-reactive protein <3.0 mg/L <8.0 normal Not Available [facility] [address], [place], [address], 12/10/2023 16:54:56 03/09/19 25 03/10/2024 UREA NITRO GEN (BUN) urea nitrogen (BUN) 18 mg/dL 7-25 normal Not Available [facility] [address], [place], [address], 03/10/2024 03:45:20 03/09/19 25 03/10/2024 CREAT ININE creatinine 0.78 mg/dL 0.60-1 .00 normal Not Available [facility] [address], [place], [address], 03/10/2024 03:45:22 03/09/19 25 03/10/2024 CREAT ININE eGFR 82 mL/mi n/1.7 3m2 > or = 60 normal Not Available [facility] [address], [place], [address], 03/10/2024 03:45:22 01/04/[address], lower extre mity, w/ contr ast No observ ation record ed. aamoro Not Available 2023 15:16:40 02/22/19 25 02/22/2024 MRI, hip, w/o contr ast No observ ation record ed. Not Available 2024 07:24:09 03/29/19 25 03/29/2024 CT, pelvi s, w/wo contr ast No observ ation record ed. [facility] [address], [place], [address], 03/30/2024 12:41:12 Result Notes None recorded. 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 [place], [address], [place] [facility] 4 15:38:17 Tendinitis of hip 689390419 Active 2023 Sanjay Beyer MD [address], [place], [address], [place] [facility], [facility] 4 15:38:28 Problem Notes None recorded. Procedures Surgical History None recorded. Imaging Results Imaging Date Name Status LastModified by Organiz ation Details LastModified Time 01/04/2024 CT, lower extremity, w/ contrast completed aamoro Information not available 01/04/2024 15:16:40 02/22/2024 MRI, hip, w/o contrast completed Information not available 02/24/2024 07:24:09 03/29/2024 CT, pelvis, w/wo contrast completed [facility] [address], [place], [address], 03/30/2024 12:41:12 Procedure Notes None recorded. Medical Equipment None Reported. Medications Name Sig Start Date Stop Date Status Note LastModified by Organization Details LastModified Time amoxicillin 500 mg capsule TAKE 4 CAPSULES BY MOUTH 1 HOUR PRIOR TO APPOINTME NT active Not Available Not Available No t Available doxycycline hyclate 100 mg capsule TAKE 1 CAPSULE BY MOUTH TWICE A DAY 02/28 completed Not Available Not Available Not Available citalopram 40 mg tablet 1 tablet every day by oral route. active Not Available Not Available No t Available ibuprofen 800 mg tablet TAKE 1 TABLET (800 MG TOTAL) BY MOUTH EVERY 8 HOURS NEEDED FOR PAIN FOR UP TO 30 DAYS. 02/28 completed Not Available Not Available Not Available fluorouraci l 5 % topical cream PLEASE SEE ATTACHED FOR DETAILED DIRECTION S 02/28 completed Not Available Not Available Not Available butalbital- acetaminoph en-caffeine 50 mg-325 mg-40 mg tablet TAKE 1 TABLET BY MOUTH 4 TIMES A DAY NEEDED FOR HEADACHE active Not Available Not Available No t Available pantoprazol e 20 mg tablet,tevin yed release 1 tablet every day by oral route. active Not Available Not Available No t Available pantoprazol e 40 mg tablet,tevin yed release TAKE 1 TABLET BY MOUTH EVERY DAY active Not Available Not Available No t Available methylpredn isolone 4 mg tablets in a dose pack TAKE 6 TABLETS ON DAY 1 DIRECTED ON PACKAGE AND DECREASE BY 1 TAB EACH DAY FOR A TOTAL OF 6 DAYS 02/28 completed Not Available Not Available Not Available rosuvastati n 10 mg tablet 1 tablet every day by oral route. active Not Available Not Available No t Available Vitals Date Recorded Body height Body mass index (BMI) Body weight Provider Name and Address Organization Details Last Updated DateTime 01/04/2024 167.64 cm 23.6 kg/m2 [address]28.[address] [facility] 01/04/2024 15:10:03 Date Recorded Body height Provider Name an d Address Organization Details Last Updated DateTime 02/29/2024 [address] [place] [facility] 02/29/2024 13:36:24 Social History Question Answer Notes LastModified by Organizat ion Details LastModified Time Tobacco Smoking Status Former Smoker Nona Irene null, [place] [facility] 01/04/2024 15:10:49 What Is Your Level Of Alcohol Consumption? None Information not available 01/04/2024 When Did You Quit Smoking? 16+yearssin celastcigar ette Information not available 01/04/2024 Do You Use Any Illicit Or Recreational Drugs? No Information not available 01/04/2024 Sex: Unknown Functional Status None recorded. Mental Status None recorded. Family History Relationship Description Onset Age of this Age Resolved Age Notes LastModified by Organization Details LastModified Time Mother Arthritis Not availabl e 01/04/2024 15:10:33 Father Arthritis Not availabl e 01/04/2024 15:10:33 Sister Arthritis Not availabl e 01/04/2024 15:10:33 Brother Arthritis Not availab le 01/04/2024 15:10:33 Medical History No medical history recorded. Gynecological HistoryNo gynecological history recorded. Obstetrics History GPAL:G 0 P 0 0 0 0 Past Encounters Encounter ID Performer Location Encounter Start Date Encounter Closed Date Diagnosis/Indication Diagnosis SNOMED-CT Code Diagnosis ICD10 Code Diagnosis Note [id number] Sanjay Beyer MD [address] [place] [address] [place] [address] 01/04/2024 14:49:26 01/04/2024 15:42:37 History of total replacement of left hip joint 8845281379 829409 Z96.642 Chronic pa in following left total hip arthroplasty 7752486439 1127159 M25.552 G89.29 Z96.642 Tendinitis of hip 108038 006 M76.892 [id number] MD ALONSO Stauffer [place] [address] [facility] [address] [place] [address] 02/29/2024 13:25:43 02/29/2024 14:01:22 Chronic pain following left total hip arthroplasty 3670490879 5329918 M25.552 G89.29 Z96.642 Health Concerns Section Related Observation LastModified by Organization Detai ls LastModified Time None Recorded Concern Status LastModified by Organization Details LastModified Time None Recorded Advance Directives Directive None Recorded Payers Encounter Date Sequence Insurance Name Policy Number Policy Leonardo Covered Member ID Leonardo Member ID Guarantor Name 01/04/2024 1 [place] Lexy O Miehm [id number] 2 Lexy Miehm 01/04/2024 2 [place]LE[place]) [id number] Lexy O Miehm [id number] Lexy Miehm 02/29/2024 1 [place] Lexy O Miehm [id number] 2 Lexy Miehm 02/29/2024 2 [place]) [id number] Lexy O Miehm [id number] Lexy Miehm OBGyn Episode No OBEpisode recorded.
--- OUTSIDE RECORDS SUMMARY | 2024-03-30 14:37 | XMS_ITS | Patient Health Record ---
Author Organization [facility], Address [address] [address] Care Team Providers Care Traffic Police Officer Name Role Phone SARA DUMAS Unavailable [phone] Allergies No Known Allergies Reason For Referral Reason Lt iliopsoas tendino leora, myofascial pain- stretch, strengthen, manual therapy Diagnosis 1 Myofascial pain (M79 .18) Diagnosis 2 Tendinitis of left h ip flexor (M76.892) Referral Organization [facility], Referring Provider First Name [...] Problem Status W/U Status Risk Notes Problem 143494024927556 Meralgia paresthetica, left lower limb (G57.12) Active confirmed Problem 06262431 Other chronic pain (G89.29) Active confirmed Problem 829402713519 History of total left hip replacement (Z96.642) Active confirmed Vital Signs Weight-kg 66.22 kg 11/16/2023 Height 66 in 11/16/2023 Weight 146 lbs 11/16/2023 BMI 23.56 kg/m2 11/16/2023 Encounters Encounter Location Date Provider Diagnosis [facility] [address] [place] [address] 09/10/2023 SARA DUMAS Pain in left hip M25.552 ; Other chronic pain G89.29 ; History of total left hip replacement Z96.642 ; Tendinitis of left hip flexor M76.892 ; Gluteal tendinitis, left hip M76.02 and Myofascial pain M79.18 [facility] [address] [place] [address] [place] 11/04/2023 SAAR DUMAS Tendinitis of left hip flexor M76.892 and Myofascial pain M79.18 [facility] [address] [place] [address] [place] 11/16/2023 SARA GONZALEZAN History of total lef t hip replacement Z96.642 ; Tendinitis of left hip flexor M76.892 ; Myofascial pain M79.18 and Meralgia paresthetica, left lower limb G57.12 [facility] [address] [place] [address] [place] 11/05/2023 SARA DUMAS [facility] [address] [place] [address] [place], [place] 09/21/2023 SARA PIERCESMAN [facility] [address] [place] [address] [place], [place] 09/22/2023 SARA PIERCESMAN [facility] [address] [place] [address] [place], [place] 09/23/2023 SARA DUMAS [facility] [address] [place] [address] [place], [place] 10/04/2023 SARA PIERCESMAN [facility] [address] [place] [address] [place], [place] 10/04/2023 SARA DUMAS Assessments Encounter Date [...] 50 percent of the visit was spent trel-ay-edmx counseling the patient or coordinating care. Time [...] encounter as if the encounter had occurred wakz-dz-[id number] with the same standards of appropriate practice [...] 50 percent of the visit was spent fkbo-nu-vvff counseling the patient or coordinating care. Time [...] of [place] [address] [facility] [place] [id number] [place] Self - patient is the insured BS MEDEX (Supplement) [address] [place], [place] [phone] [id number] Lexy Guzmán Self - patient is the insured Medical (General) History Medical History History ICD Code OA Surgical History Surgery Date(Month/Year) right hip replacement 08/05/2017 left hip replacement 06/19/2021 microvascular decompression of cranial n erve 7 2007 microvascular decompression of cranial n erve 7 2008
--- OUTSIDE RECORDS SUMMARY | 2024-03-30 14:37 | XMS_ITS | Clinical Summary ---
Author Organization [facility] it Address [address] [place] [address] Care Team Providers Care Supervisor Dials Name Role Phone Robert Elkins MD Primary Care Provider [phone] Surgical History Surgery Date Site/Laterality Comments TOTAL [...] drink = 0.6 oz pur e alcohol) Comments Unknown Sex and Gender Information Value Date Recorded Sex Assigned at Not on file Legal Sex Female 12:31 AM EST Gender Identity Not on file Sexual Orientation Not on file Obstetrics History Plan of Treatment Health Maintenance Due Date Last Done Comments Breast Cancer Screening 1955 DTaP,Tdap,and Td Vaccines (1 - Tdap) 1972 Zoster Vaccines (1 of 2) 04/19/2003 Pneumococcal Vaccine: 50+ Ye ars (1 of 1 - PCV) [...] age to complete this topic Care Teams Supervisor Dials Relationship Specialty Start Date End Date Robert Elkins MD PCP - General Business Continuity Specialist 10/05/13
--- OUTSIDE RECORDS SUMMARY | 2024-03-30 14:37 | XMS_ITS | Data Portability ---
Author Organization [facility], [address] Address [address] [place] [address] Care Team Providers Care Chief Mechanical Engineer Name Role Phone TEE MONTOYA Primary Care Provider Assessment No assessment recorded. Plan of Treatment Reminders Order Date Submit Date Provider Last Modified By Organization Details Last Modified Time Details Appointments None recorded. Lab None recorded. Referral None recorded. Procedures None recorded. Surgeries None recorded. Imaging None recorded. Medication Orders prednisone 20 mg tablet 2021 [facility] #[id number], [phone] [place], [address], 19:31:56 albuterol sulfate HFA 90 mcg/actuati on aerosol inhaler [facility] [phone] [place], [address], 19:31:56 benzonatate 200 mg capsule [facility] [phone] [place], [address], 19:31:55 Patient TargetsNo targets recorded. Patient Instructions Encounter Date Encounter Id Patient Instructions Last Modified By Organization Details Last Modified Time 01/25/2022 [id number] wheezing or bronchoconstrictio n: care instructions Not [...] and Address Organization Details Recorded Time Hyperlipidemia 11222634 Active 2021 ALEXANDRA Mathis - [facility] 2 18:52:33 Anxiety 71962290 Active 2021 TAPAN DRINKSTEVENE [place], [place] [facility] 18:53:17 Migraine 25357937 Active 2021 TAPAN DRINKSTEVENE [place], [place] [facility] 18:53:26 Problem [...] Not Available Vitals Date Recorded Body height Body mass index (BMI) Body weight Pain severity - 0-10 verbal numeric rating [Score] - Reported Oxygen saturation Oxygen saturation in Arterial blood by Pulse oximetry Heart rate Respiratory rate Body temperature Systolic blood pressure Diastolic blood pressure Provider Name and Address Organization Details Last Updated DateTime 2 167.64 cm 23.4 kg/m2 97449.8 9 g 0 98 % 98 % 62 /min 16 /min 97.6 [degF] 112 mm[Hg] 76 mm[Hg] TAPAN DRINKWINE [place] [facility] 18:58:00 Social History Question Answer Notes LastModified by Organizat ion Details LastModified Time Tobacco Smoking Status Never Smoker TAPAN DRINKWINE null, [place] [facility] 01/25/2022 18:55:40 Do [...] SNOMED-CT Code Diagnosis ICD10 Code Diagnosis Note [id number] [address] [place] [address] 03/10/2021 08:15:41 03/10/2021 09:03:05 [id number] [address] [place] [address] 01/29/2021 13:51:01 01/29/2021 15:19:03 [id number] Vincent Vargas, GENERAL MAGISTRATE [address] [place] [address] 01/25/2022 17:43:22 01/25/2022 19:33:04 Acute bronchitis 75151069 J20.9 Health Concerns Section Related Observation LastModified by Organization Arceliaai maurizio LastModified Time None Recorded Concern Status LastModified by Organization Details LastModified Time None Recorded Advance Directives Directive None Recorded Payers Encounter Date Sequence Insurance Name Policy Number Policy Leonardo Covered Member ID Leonardo Member ID Guarantor Name 01/29/2021 1 [place] [employer] Lexy Guzmán [id number] 2 Lexy Martem 03/10/2021 1 [place] [facility] Lexy Guzmán [id number] 2 Lexy Guzmán 01/25/2022 1 [place] [facility] Lexy Martem [id number] 2 Lexy Martem Notes Date Note Type Note Provider Name and Address Organization Details Recorded Time 01/25/2022 text/html AsthmaReported bypatient.Notes:gerald ested cough x 1 week. nasal congestion and post nasal drip. feel like she is wheezing at times. worried about developing pneumonia. Vincent Vargas NP [address] [place], [address], [place] - [facility] 01/25/2022 19:32:18 OBGyn Episode No OBEpisode recorded.
--- OUTSIDE RECORDS SUMMARY | 2024-03-30 14:37 | XMS_ITS | Clinical Summary ---
Author Organization [facility] Address [address] [place] [address] Care Team Providers Care Engine Manager Name Role Phone Robert William MD Primary Care Provider [phone] Allergies No known active allergies Medications Medication [...] age to complete this topic Care Teams Engine Manager Relationship Specialty Start Date End Date Robert William MD [address] [place] [address] PCP - General Operating Systems Programmer 10/05/13
--- OUTSIDE RECORDS SUMMARY | 2024-03-30 14:37 | XMS_ITS ---
Author Organization [facility], Address [address] [address] Care Team Providers Care Refund Specialist Name Role Phone ANTHONY ARCOS Unavailable [phone] REASON FOR VISIT TELEMED VID FU LT THIGH Encounters Encounter Location Date Provider Diagnosis [facility], [address] [address] 02/17/2024 ANTHONY ARCOS Plan Of Treatment No Information Progress Notes * Lexy GUZMÁNDOB:1955 (68 yo F)Acc No.[id number]:02/17/2024 Patient:?Lexy GUZMÁN Provider:?Anthony Arcos DO :1955???Age:68 Y???Sex:Female D ate:02/17/2024 Address:[address] [place], [place] [address] Subjective: * Chief Complaints: * ???1. TELEMED VID FU LT THIG H. * Medical History:? Objective: * Vitals:? Assessment: Plan: * Treatment: * Billing Information: * Visit Code:? * Procedure Codes:? * Electronic signature of MARY ARCOS DO on 03/30/2024 at 02:36 PM EST Sign off status: Pending * Provider:Gaye Arcos DO Date:?02/16 Generated for Printi ng/Faxing/eTransmitting on:?03/30/2024 02:36 PM EST
--- OUTSIDE RECORDS SUMMARY | 2024-03-30 14:37 | XMS_ITS ---
Author Organization [facility], Address [address] [address] Care Team Providers Care Fish And Wildlife Warden Name Role Phone SARA DUMAS Unavailable [phone] REASON FOR VISIT SCHED DIFF INJ (120 MIN) Encounters Encounter Location Date Provider Diagnosis [facility], [address] [address] 11/05/2023 SARA DUMAS Plan Of Treatment No Information Progress Notes * MARKTala RomerovivianDOB:1955 (68 yo F)Acc No.[id number]:11/05/2023 Patient:?Lexy WEBSTER :1955???Age:68 Y???Sex:Female Address:[place] [address] * true * Date:? Generated for Printi ng/Keving/eTransmitting on:?03/30/2024 02:37 PM EST
--- OUTSIDE RECORDS SUMMARY | 2024-03-30 14:37 | XMS_ITS | Continuity of Care Document ---
Author Organization [place] [facility] Olga Campos AONE [place] Address [address] [address] Care Team Providers Care Liner Machine Operator Helper Name Role Phone MOSLEYTEN BRADSHAWREN Primary Care Provider Assessment Encounter Date Assessment Date Assessment LastModified by Organization Details LastModified Time 02/29/2024 02/29/2024 HPI : Patient is here [...] MRI 02/23/24) 2024 025 REBEKAH Not available 17:20:26 Medication Orders None recorded. Patient TargetsNo targets recorded. Patient InstructionsNo instructions recorded. Reason for Referral None Reported. Results Created Date Observation Date Name Description Value Unit Range Abnormal Flag Note LastModifiedBy Organization Detail LastModifiedTime 02/22/19 25 02/22/2024 MRI, hip, w/o contr ast No observ ation record ed. Not Available 2024 07:24:09 03/29/19 25 03/29/2024 CT, pelvi s, w/wo contr ast No observ ation record ed. [facility] ([facility]) [address], [place], [address], 03/30/2024 12:41:12 Result Notes None recorded. 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 Medical Equipment None Reported. [...] t Available Vitals Date Recorded Body height Provider Name an d Address Organization Details Last Updated DateTime 02/29/2024 [address] [place] [facility] [place] 02/29/2024 13:36:24 Social History Question Answer Notes LastModified by Organizat ion Details LastModified Time Tobacco Smoking Status Former Smoker Nona [place], [place] [facility] [place] 01/04/2024 15:10:49 What Is Your Level [...] SNOMED-CT Code Diagnosis ICD10 Code Diagnosis Note [id number] Sanjay Beyer MD [address] [address] 02/29/2024 13:25:43 02/29/2024 14:01:22 Chronic pain following left total hip arthroplasty 2634760665 [id number] M25.552 G89.29 Z96.642 Health Concerns Section Related Observation LastModified by Organization Detai ls LastModified Time None Recorded Concern Status LastModified by Organization Details LastModified Time None Recorded Payers Encounter Date Sequence Insurance Name Policy Number Policy Leonardo Covered Member ID Leonardo Member ID Guarantor Name 02/29/2024 1 [place] Lexy O Miehm [id number] Lexy Miehm 02/29/2024 2 [place] [employer] (MEDICARE SUPPLEMENT) [id number] Lexy O Miehm [id number] Lexy Miehm OBGyn Episode No OBEpisode recorded.
--- OUTSIDE RECORDS SUMMARY | 2024-03-30 14:37 | XMS_ITS | Clinical Summary ---
Author Organization [facility] Address [address] [place] [address] Care Team Providers Care Cancer Program Coordinator Name Role Phone Unavailable Primary Care Provider [...]
--- NOTE | 2024-03-31 08:37 | MHC.AU.HA3 ---
Hearing Instrument Follow-Up- Binaural Date of Visit: 03/30/24 Right Ear: Cristopher, Model, Color, Serial Number: Oticon Intent 2 miniRITE R chestnut [id number] Offset Duplicating Machine Operator Repair Warranty: 02/23/2027 Offset Duplicating Machine Operator Loss and Damage Warranty: 02/23/2027 [facility] Service Plan: Battery Size: Rechargeable White Shoe Ragger/Slim Tube: #2 85g Earmold/Dome/CShell/SlimTip:6mm dbl jacobsen Type of Wax Guard: Minifit ProWax Dispensed By: [facility] Date of Fittin02/02/24 Left Ear: Cristopher, Model, Color, Serial Number: Oticon Intent 2 miniRITE R, chestnut [id number] Offset Duplicating Machine Operator Repair Warranty: 02/23/2027 Offset Duplicating Machine Operator Loss and Damage Warranty: 02/23/2027 [facility] Service Plan: Battery Size: Rechargeable White Shoe Ragger/Slim Tube: #2 85g Earmold/Dome/CShell/SlimTip: 6mm dbl jacobsen Type of Wax Guard: Minifit ProWax Dispensed By: [facility] Date of Fittin02/02/24 Follow-Up Summary: Lexy has decided to return her hearing aids, stating she continues to find they make everything louder but not clearer and finds she is more comfortable without them than with them. She expressed disappointment that this did not work out, despite best efforts on both her part and my own. She is seeking consultation from Dr Euceda to consider stapedectomy, would perhaps consider another trial with hearing aids in the future. Encouraged her to reach out should she become interested in giving this another try. Aids returned in working order, submitted refund sheet to [employer]-- pt paid half of total balance at time of fitting, had not begun paying off remaining balance yet. Diagnosis Code(s): Primary Diagnosis: H90.6 Mixed Hearing Loss, Bilateral Signature: Provider: Vianca Meyer, [facility]
== END 2024-03-30 14:31 | disposition home or self-care (01) ==
LOC: HO.HAP 14:30
PROVIDERS: Visit Provider Internal Medicine
DX: Z13.89 Encounter for screening for other disorder (principal)